=== PATIENT | male | born 1945 | race Caucasian/White ===

== ENCOUNTER 2016-10-04 17:31 | Emergency (ER) | payer OTHER, MEDICARE ==
[~2016-10-04] VITALS: Ht 175.3 cm; Wt 110.0 kg
[~2016-10-04 17:31] MED LIST: ALLO300 PO; ASPI81 PO; COZA100T PO; FISH1000 PO; LISI-591 PO; NIAC100T3 PO; NIAC500 PO; NOVONP2 SQ; NOVORP2 SQ; OMEP20CA5 PO; PAXI20TA26 PO; PRAV80TA PO; VITA10002 PO; VITA400C28 PO
[2016-10-04] MEDS ORDERED: ONDANSETRON HCL 4 MG/2 ML VIAL ONE (17:44)
[2016-10-04 17:50] VITALS: BP 207/98; PULSE 56; RESP 18; TEMP 97.4; O2SAT 98
[2016-10-04] MEDS ORDERED: SODIUM CHLOR 0.9% 1000 ML INJ 1,000 ML IV ONE (17:50)
[2016-10-04 17:55] VITALS: O2SAT 98
[2016-10-04] MEDS ORDERED: SODIUM CHLORIDE 0.9% FLUSH 10 ML FLUSH IVF PRN (18:00)
--- NOTE | 2016-10-04 18:28 | PD ---
HPI Chief Complaint: GI Complaint Time Seen by Provider: 17:58 Travel History International Travel<30 days: No Contact w/Intl Traveler<30days: No Traveled to known affect area: No History of Present Illness HPI Patient is a 71-year-old male brought in by the [facility] for evaluation of nausea and vomiting. Per patient he was at a [employer] restaurant when he became dizzy , followed by nausea and then he began to vomit. Per EMS report patient was very diaphoretic on arrival, he was found slumped to the side in a chair, alert and oriented. There was no loss of consciousness. Patient denies any chest pain, fever, chills, abdominal pain, diarrhea, sick contacts. He states that he 's been feeling fine until this occurred. He reports bowel movements every few days which is normal for him. He has not had a bowel movement in 3 days approximately. Patient's past medical history significant for type 2 diabetes, gout, hypertension. His primary care provider is at the OR clinic. Blood glucose was 116, patient was given 4 mg of IV Zofran en route. PFSH Past Medical History Cancer: No Diabetes: Yes Patient Takes Glucophage: No Glaucoma: No Gout: Yes Hepatitis: No Hiatal Hernia: No Hypertension: Yes Thyroid Disease: No Tetanus Vaccination: < 5 Years Influenza Vaccination: Yes ?: Not Past Surgical History Abdominal Surgery: Yes (APPENDECTOMY) Eye Surgery: Yes (CATARACTS ) Genitourinary Surgery: Yes (KIDNEY STONE REMOVAL ) Pacemaker: No Social History Alcohol Use: No Tobacco Use: No Substance Use: No Allergies-Medications (Allergen,Severity, Reaction): Coded Allergies: No Known Allergies (Verified , 09/30/08) Reported Meds & Prescriptions Reported Meds & Active Scripts Active Reported Vitamin D 400 Unit Tab 400 Unit PO DAILY Vitamin B12 (Cyanocobalamin) 1,000 Mcg Tab 1,000 Mcg PO DAILY Zestril (Lisinopril) 20 Mg Tab 20 Mg PO DAILY Aspirin 81 Mg Tab 81 Mg PO DAILY Pravachol (Pravastatin Sodium) 80 Mg Tab 80 Mg PO HS Cozaar (Losartan Potassium) 100 Mg Tab 100 Mg PO DAILY Paxil (Paroxetine HCl) 20 Mg Tab 20 Mg PO DAILY Fish Oil 1,000 Mg Cap 1,000 Mg PO TID Prilosec (Omeprazole) 20 Mg Capcr 20 Mg PO BID Niaspan Er (Niacin) 500 Mg Capcr 500 Mg PO BID Niacin 100 Mg Tab 100 Mg PO Zyloprim (Allopurinol) 300 Mg Tab 300 Mg PO DAILY Novolin R (Insulin Human Regular) 100 Units/Ml Inj 0 Unit SQ DIRECTED Sliding Scale As Directed. Novolin N (Insulin Human NPH) 100 Units/Ml Inj 45 Units SQ BID Review of Systems Except as stated in HPI: all other systems reviewed are Neg HENT: Positive: Lightheadedness, No: Headaches Cardiovascular: Positive: Diaphoresis, No: Chest Pain or Discomfort Respiratory: No: Shortness of Breath, Wheezing Gastrointestinal: Positive: Nausea, Vomiting, No: Abdominal Pain, Indigestion , Loss of Appetite Neurologic: Positive: Dizziness, No: Focal Abnormalities, Change in Mentation , Sensory Disturbance Physical Exam Narrative GENERAL: Overweight, well-developed, alert elderly gentleman. Actively dry heaving SKIN: Focused skin assessment warm/dry. HEAD: Atraumatic. Normocephalic. EYES: Pupils equal and round. No scleral icterus. No injection or drainage. ENT: No nasal bleeding or discharge. Mucous membranes pink and moist. NECK: Trachea midline. No JVD. CARDIOVASCULAR: Regular rate and rhythm. No murmur appreciated. RESPIRATORY: No accessory muscle use. Clear to auscultation. Breath sounds equal bilaterally. GASTROINTESTINAL: Abdomen soft, non-tender, nondistended. Hepatic and splenic margins not palpable. Positive bowel sounds, no rebound, no guarding. MUSCULOSKELETAL: No obvious deformities. No clubbing. No cyanosis. No edema. NEUROLOGICAL: Awake and alert. No obvious cranial nerve deficits. Motor grossly within normal limits. Normal speech. PSYCHIATRIC: Appropriate mood and affect; insight and judgment normal. Data Data Last Documented VS Vital Signs Date Time Temp Pulse Resp B/P Pulse Ox O2 Delivery O2 Flow Rate FiO2 10/04/16 21:55 66 18 190/89 99 Room Air 10/04/16 20:45 98.0 Orders Ondansetron Inj (Zofran Inj) (10/04/16 17:44) Electrocardiogram (10/04/16 17:50) Complete Blood Count With Diff (10/04/16 17:50) Comprehensive Metabolic Panel (10/04/16 17:50) Magnesium (Mg) (10/04/16 17:50) Ckmb (Isoenzyme) Profile (10/04/16 17:50) Troponin I (10/04/16 17:50) Act Partial Throm Time (Ptt) (10/04/16 17:50) Prothrombin Time / Inr (Pt) (10/04/16 17:50) Ct Brain W/O Iv Contrast(Rout) (10/04/16 17:50) Ecg Monitoring (10/04/16 17:50) Iv Access Insert/Monitor (10/04/16 17:50) Oximetry (10/04/16 17:50) Sodium Chloride 0.9% Flush (Ns Flush) (10/04/16 18:00) Sodium Chlor 0.9% 1000 Ml Inj (Ns 1000 M (10/04/16 17:50) Lipase (10/04/16 17:50) Ondansetron Inj (Zofran Inj) (10/04/16 18:45) Ct Abd/Pel W Iv Contrast(Rout) (10/04/16 ) Enalaprilat Inj (Vasotec Inj) (10/04/16 20:00) Urinalysis - C+S If Indicated (10/04/16 20:01) CKMB (10/04/16 17:55) CKMB% (10/04/16 17:55) Diphenhydramine Inj (Benadryl Inj) (10/04/16 20:45) Troponin I (10/04/16 21:00) Ckmb (Isoenzyme) Profile (10/04/16 21:00) Iohexol 350 Inj (Omnipaque 350 Inj) (10/04/16 21:42) CKMB (10/04/16 21:05) CKMB% (10/04/16 21:05) Labs Laboratory Tests Test 10/04/16 10/04/16 10/04/16 17:55 20:04 21:05 White Blood Count 9.7 TH/MM3 Red Blood Count 4.78 MIL/MM3 Hemoglobin 14.1 GM/DL Hematocrit 40.7 % Mean Corpuscular Volume 85.1 FL Mean Corpuscular Hemoglobin 29.6 PG Mean Corpuscular Hemoglobin 34.8 % Concent Red Cell Distribution Width 14.6 % Platelet Count 190 TH/MM3 Mean Platelet Volume 9.3 FL Neutrophils (%) (Auto) 63.8 % Lymphocytes (%) (Auto) 23.8 % Monocytes (%) (Auto) 9.0 % Eosinophils (%) (Auto) 2.6 % Basophils (%) (Auto) 0.8 % Neutrophils # (Auto) 6.2 TH/MM3 Lymphocytes # (Auto) 2.3 TH/MM3 Monocytes # (Auto) 0.9 TH/MM3 Eosinophils # (Auto) 0.3 TH/MM3 Basophils # (Auto) 0.1 TH/MM3 CBC Comment DIFF FINAL Differential Comment Prothrombin Time 11.4 SEC Prothromb Time International 1.0 RATIO Ratio Activated Partial 24.0 SEC Thromboplast Time Sodium Level 140 MEQ/L Potassium Level 3.5 MEQ/L Chloride Level 104 MEQ/L Carbon Dioxide Level 23.8 MEQ/L Anion Gap 12 MEQ/L Blood Urea Nitrogen 15 MG/DL Creatinine 1.28 MG/DL Estimat Glomerular Filtration 55 ML/MIN Rate Random Glucose 127 MG/DL Calcium Level 8.7 MG/DL Magnesium Level 1.8 MG/DL Total Bilirubin 0.5 MG/DL Aspartate Amino Transf 26 U/L (AST/SGOT) Alanine Aminotransferase 35 U/L (ALT/SGPT) Alkaline Phosphatase 95 U/L Total Creatine Kinase 138 U/L 146 U/L Creatine Kinase MB 0.9 NG/ML 1.1 NG/ML Troponin I LESS THAN 0.02 LESS THAN 0.02 NG/ML NG/ML Total Protein 7.2 GM/DL Albumin 3.6 GM/DL Lipase 122 U/L Urine Color LIGHT-YELLOW Urine Turbidity CLEAR Urine pH 8.0 Urine Specific [place] 1.010 Urine Protein NEG mg/dL Urine Glucose (UA) 150 mg/dL Urine Ketones NEG mg/dL Urine Occult Blood NEG Urine Nitrite NEG Urine Bilirubin NEG Urine Urobilinogen LESS THAN 2.0 MG/DL Urine Leukocyte Esterase NEG Urine RBC 1 /hpf Urine WBC 1 /hpf Microscopic Urinalysis Comment CULT NOT INDICATED MDM Medical Decision Making Medical Screen Exam Complete: Yes Emergency Medical Condition: Yes Interpretation(s) Laboratory Tests Test 10/04/16 10/04/16 10/04/16 17:55 20:04 21:05 White Blood Count 9.7 TH/MM3 Red Blood Count 4.78 MIL/MM3 Hemoglobin 14.1 GM/DL Hematocrit 40.7 % Mean Corpuscular Volume 85.1 FL Mean Corpuscular Hemoglobin 29.6 PG Mean Corpuscular Hemoglobin 34.8 % Concent Red Cell Distribution Width 14.6 % Platelet Count 190 TH/MM3 Mean Platelet Volume 9.3 FL Neutrophils (%) (Auto) 63.8 % Lymphocytes (%) (Auto) 23.8 % Monocytes (%) (Auto) 9.0 % Eosinophils (%) (Auto) 2.6 % Basophils (%) (Auto) 0.8 % Neutrophils # (Auto) 6.2 TH/MM3 Lymphocytes # (Auto) 2.3 TH/MM3 Monocytes # (Auto) 0.9 TH/MM3 Eosinophils # (Auto) 0.3 TH/MM3 Basophils # (Auto) 0.1 TH/MM3 CBC Comment DIFF FINAL Differential Comment Prothrombin Time 11.4 SEC Prothromb Time International 1.0 RATIO Ratio Activated Partial 24.0 SEC Thromboplast Time Sodium Level 140 MEQ/L Potassium Level 3.5 MEQ/L Chloride Level 104 MEQ/L Carbon Dioxide Level 23.8 MEQ/L Anion Gap 12 MEQ/L Blood Urea Nitrogen 15 MG/DL Creatinine 1.28 MG/DL Estimat Glomerular Filtration 55 ML/MIN Rate Random Glucose 127 MG/DL Calcium Level 8.7 MG/DL Magnesium Level 1.8 MG/DL Total Bilirubin 0.5 MG/DL Aspartate Amino Transf 26 U/L (AST/SGOT) Alanine Aminotransferase 35 U/L (ALT/SGPT) Alkaline Phosphatase 95 U/L Total Creatine Kinase 138 U/L 146 U/L Creatine Kinase MB 0.9 NG/ML 1.1 NG/ML Troponin I LESS THAN 0.02 LESS THAN 0.02 NG/ML NG/ML Total Protein 7.2 GM/DL Albumin 3.6 GM/DL Lipase 122 U/L Urine Color LIGHT-YELLOW Urine Turbidity CLEAR Urine pH 8.0 Urine Specific [place] 1.010 Urine Protein NEG mg/dL Urine Glucose (UA) 150 mg/dL Urine Ketones NEG mg/dL Urine Occult Blood NEG Urine Nitrite NEG Urine Bilirubin NEG Urine Urobilinogen LESS THAN 2.0 MG/DL Urine Leukocyte Esterase NEG Urine RBC 1 /hpf Urine WBC 1 /hpf Microscopic Urinalysis Comment CULT NOT INDICATED Last Impressions Head CT 10/04/16 1750 Signed Impressions: Service Date/Time: Tuesday, October 04, 2016 18:49 - CONCLUSION: No acute intracranial disease. Paul Beltran MD Abdomen/Pelvis CT 10/04/16 0000 Signed Impressions: Service Date/Time: Tuesday, October 04, 2016 21:24 - CONCLUSION: 1. Cholelithiasis. 2. Stomach is dilated and filled with fluid. 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 5. Soft tissue thickening of the anterior abdominal wall greater on the left could be contusion or cellulitis. No 6. Nonobstructing lower pole left renal calculus measuring 9 mm. 7. Right renal cyst. Paul Beltran MD Vital Signs Date Time Temp Pulse Resp B/P Pulse Ox O2 Delivery O2 Flow Rate FiO2 10/04/16 17:55 98 Room Air 10/04/16 17:50 97.4 56 18 207/98 98 Room Air 10/04/16 17:50 18 Differential Diagnosis Gastritis versus gastroenteritis versus foodborne illness versus obstruction versus cardiac arrhythmia versus ACS versus other Narrative Course Patient is 71-year-old male presenting to the emergency room after he became diaphoretic, dizzy and started vomiting just prior to arrival. Patient placed on telemetry monitoring, continuous pulse oximetry, IV access established. Labs and imaging ordered and pending. CT scan of the brain was ordered to rule out CVA. Patient denied any abdominal pain on initial exam. Patient given additional 4 mg of Zofran IV, IV fluids. Patient was reassessed, he reported lower abdominal pain, CT scan of the abdomen and pelvis ordered. CBC is unremarkable 2 sets of cardiac enzymes are negative Chemistry is unremarkable Urinalysis is unremarkable Coags are unremarkable. Patient was ambulating in the emergency department, he has not vomited but reported some nausea with ambulation. He was given Benadryl 50 mg IV [address] scan abdomen and pelvis shows cholelithiasis, the stomach is dilated and filled with fluid, clarification was obtained from the radiologist who read the CAT scan, he does not feel that this is a risk for gastric outlet obstruction. Benign mild lipomas of the left adrenal gland, mesenteric panniculitis, benign process. Soft tissue thickening of the anterior abdominal wall greater on the left. This is correlated clinically, this is where patient does administer subcutaneous insulin. There is a nonobstructing lower pole left renal calculus measuring 9 mm, and a right renal cyst. CT scan of brain is negative. Patient was reassessed, he denies any further dizziness, he does not feel nauseated. Patient is ready to go home. He was advised to follow-up with his primary doctor within the next 24 hours. He was advised to return to emergency department for any new or worsening symptoms. Patient verbalized understanding of these instructions. Patient is stable for discharge. Diagnosis Primary Impression: Dizziness Additional Impression: Nausea & vomiting Qualified Code: R11.2 - Non-intractable vomiting with nausea, unspecified vomiting type Referrals: Primary Care Physician 1 day Patient Instructions: Acute Nausea and Vomiting (ED), Dizziness (ED), General Instructions Additional Instructions: Follow-up with your primary care provider in 24 hours Return to department immediately for any new or worsening symptoms Take medications as directed Maintain adequate fluid intake Med/Other Pt SpecificInfo: Prescription(s) given Scripts Ondansetron Odt (Zofran Odt)4 Mg Tab4 Mg SL Q6HR PRN (Nausea/Vomiting) #30 TAB Ref 0 Prov:Lupe Smith 10/04/16 Disposition: 01 DISCHARGE HOME Condition: Stable Lupe Smith October 04, 2016 18:28
[2016-10-04] MEDS ORDERED: ONDANSETRON HCL 4 MG/2 ML VIAL IV PUSH ONE (18:45)
--- NOTE | 2016-10-04 18:58 | RADRPT ---
EXAM DATE/TIME: 10/04/2016 18:49 [facility] COMPARISON: No previous studies available for comparison. INDICATIONS : Dizziness. RADIATION DOSE: 43.43 CTDIvol (mGy) MEDICAL HISTORY : Hypertension. Diabetes. SURGICAL HISTORY : None. ENCOUNTER: Initial ACUITY: 1 day PAIN SCALE: 0/10 LOCATION: cranial TECHNIQUE: Multiple contiguous axial images were obtained of the head. Using automated exposure control and adj ustment of the mA and/or kV according to patient size, radiation dose was kept as low as reasonably a chievable to obtain optimal diagnostic quality images. FINDINGS: CEREBRUM: The ventricles are normal for age. No evidence of midline shift, mass lesion, hemorrhage or acute in farction. No extra-axial fluid collections are seen. POSTERIOR FOSSA: The cerebellum and brainstem are intact. The 4th ventricle is midline. The cerebellopontine angle i s unremarkable. EXTRACRANIAL: The visualized portion of the orbits is intact. SKULL: The calvaria is intact. No evidence of skull fracture. CONCLUSION: No acute intracranial disease. Paul Beltran MD on October 04, 2016 at 18:55 Board Certified Radiologist. This report was verified electronically.
[2016-10-04 19:34] LABS: PROTHROMBIN TIME - PATIENT 11.4 SEC (9.8-11.6)
[2016-10-04 19:40] LABS: AUTOMATED NEUTROPHIL # 6.2 TH/MM3 (1.8-7.7); BASOPHIL # 0.1 TH/MM3 (0-0.2); BASOPHIL % 0.8 % (0.0-2.0); EOSINOPHIL # 0.3 TH/MM3 (0-0.4); EOSINOPHIL % 2.6 % (0.0-4.0); HEMATOCRIT 40.7 % (39.0-51.0); HEMO FLAGS DIFF FINAL; LYMPH % 23.8 % (9.0-44.0); LYMPHOCYTE # 2.3 TH/MM3 (1.0-4.8); MEAN CELL VOLUME 85.1 FL (80.0-100.0); MEAN CORPUSCULAR HEMOGLOBIN 29.6 PG (27.0-34.0); MEAN CORPUSCULAR HGB CONC 34.8 % (32.0-36.0); NEUT % 63.8 % (16.0-70.0); PLATELET COUNT 190 TH/MM3 (150-450); RED BLOOD COUNT 4.78 MIL/MM3 (4.50-5.90); RED CELL DISTRIBUTION WIDTH 14.6 % (11.6-17.2); WHITE BLOOD COUNT 9.7 TH/MM3 (4.0-11.0)
[2016-10-04] MEDS ORDERED: ENALAPRILAT 1.25 MG/ML VIAL IV PUSH ONE (20:00)
[2016-10-04 20:13] LABS: ALKALINE PHOSPHATASE 95 U/L (45-117); ALT (GPT) 35 U/L (12-78); ANION GAP 12 MEQ/L (5-15); AST (GOT) 26 U/L (15-37); BICARBONATE 23.8 MEQ/L (21.0-32.0); BLOOD UREA NITROGEN 15 MG/DL (7-18); CHLORIDE 104 MEQ/L (98-107); CREATINE KINASE 138 U/L (39-308); GLOMERULAR FILTRATION RATE 55 ML/MIN (>89); MAGNESIUM 1.8 MG/DL (1.5-2.5); POTASSIUM 3.5 MEQ/L (3.5-5.1); SODIUM (NA) 140 MEQ/L (136-145); TOTAL BILIRUBIN ADULT 0.5 MG/DL (0.2-1.0)
[2016-10-04 20:25] LABS: CKMB 0.9 NG/ML (0.5-3.6)
[2016-10-04 20:30] LABS: BLOOD, URINE NEG (NEG); COMMENT (UR) CULT NOT INDICATED; CULTURE IF INDICATED CULT NOT INDICATED; GLUCOSE,URINE 150 mg/dL (NEG); KETONE, URINE NEG (NEG); NITRITE,URINE NEG (NEG); URINE COLOR LIGHT-YELLOW (YELLW/STRAW)
[2016-10-04 20:45] VITALS: BP 167/89; PULSE 66; RESP 16; TEMP 98; O2SAT 99
[2016-10-04] MEDS ORDERED: diphenhydrAMINE HCL 50 MG/ML VIAL IV PUSH ONE (20:45)
[2016-10-04] MEDS ORDERED: IOHEXOL 350 MG/ML 10 ML VIAL (for RAD DIAG) IV ONE (21:42)
--- NOTE | 2016-10-04 21:53 | RADRPT ---
EXAM DATE/TIME: 10/04/2016 21:24 [facility] COMPARISON: No previous studies available for comparison. INDICATIONS : General weakness and vomiting. IV CONTRAST: 87 cc Omnipaque 350 (iohexol) IV ORAL CONTRAST: No oral contrast ingested. RADIATION DOSE: 17.4 CTDIvol (mGy) MEDICAL HISTORY : Hypertension. Renal calculi. SURGICAL HISTORY : Appendectomy. ENCOUNTER: Initial ACUITY: 1 day PAIN SCALE: 0/10 LOCATION: Bilateral abdomen TECHNIQUE: Volumetric scanning of the abdomen and pelvis was performed. Using automated exposure control and ad justment of the mA and/or kV according to patient size, radiation dose was kept as low as reasonably achievable to obtain optimal diagnostic quality images. FINDINGS: LOWER LUNGS: The visualized lower lungs are clear. LIVER: Homogeneous density without lesion. There is no dilation of the biliary tree. There are calcified ga llstones. SPLEEN: Normal size without lesion. PANCREAS: Within normal limits. KIDNEYS: Normal in size and shape. There is no mass, stone or hydronephrosis on the right. 9 mm nonobstructin g lower pole left renal calculus. Small right renal low-density. ADRENAL GLANDS: Right adrenal gland normal. Left adrenal contains 2 small fatty lesions. VASCULAR: There is no aortic aneurysm. BOWEL/MESENTERY: The stomach is dilated.. There is no free intraperitoneal air or fluid. There is some stranding of t he central mesentery. ABDOMINAL WALL: Within normal limits. RETROPERITONEUM: There is no lymphadenopathy. BLADDER: Mildly distended. No wall thickening or mass. REPRODUCTIVE: Prominent prostate. INGUINAL: There is no lymphadenopathy or hernia. MUSCULOSKELETAL: Within normal limits for patient age. CONCLUSION: 1. Cholelithiasis. 2. Stomach is dilated and filled with fluid. 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 5. Soft tissue thickening of the anterior abdominal wall greater on the left could be contusion or ce llulitis. No 6. Nonobstructing lower pole left renal calculus measuring 9 mm. 7. Right renal cyst. Paul Beltran MD on October 04, 2016 at 21:47 Board Certified Radiologist. This report was verified electronically.
[2016-10-04 21:55] VITALS: BP 190/89; PULSE 66; RESP 18; O2SAT 99
[2016-10-04 22:04] LABS: CREATINE KINASE 146 U/L (39-308)
[2016-10-04 22:17] LABS: CKMB 1.1 NG/ML (0.5-3.6)
[2016-10-04] MEDS ORDERED: ZOFR4TAB3 SL (22:36)
[2016-10-04] MEDS ORDERED: PROCHLORPERAZINE INJ 10 MG/2 ML VIAL IV PUSH ONE (22:45)
[2016-10-04 22:56] VITALS: BP 153/70
--- NOTE | 2016-10-05 14:36 | EKG ---
Date Performed: 10/04/2016 Time Performed: 17:52:00 PTAGE: 71 years EKG: SINUS BRADYCARDIA PROBABLE INFERIOR MYOCARDIAL INFARCTION Since previous tracing, no signif icant change noted ABNORMAL ECG PREVIOUS TRACING : 09/30/2008 12.48.52 DOCTOR: Bud Justin Interpretating Date/Time 10/05/2016 14:34:55
== END 2016-10-04 23:21 | disposition home or self-care (01) ==
LOC: NEPC 17:31
DX: R42 Dizziness and giddiness (principal); R11.2 Nausea with vomiting, unspecified; R94.31 Abnormal electrocardiogram [ECG] [EKG]; E11.9 Type 2 diabetes mellitus without complications; I10 Essential (primary) hypertension; M10.9 Gout, unspecified; Z79.4 Long term (current) use of insulin
CPT/HCPCS: 70450; 74177; 80053; 81001; 82550; 82552; 83690; 83735; 84484; 85025; 85610; 85730; 93005; 96374; 96375; 99284; J0780; J2405; J7030; Q9967